=== PATIENT | female | born 1990 | race African-American/Black ===

== ENCOUNTER 2016-05-26 13:05 | Emergency (ER) | payer OTHER ==
[2016-05-26 12:24] LABS: INFLUENZA A SCREEN POSITIVE (NEGATIVE); INFLUENZA B SCREEN NEGATIVE (NEGATIVE)
== END 2016-05-26 13:09 | disposition home or self-care (01) ==
LOC: ER 13:05
PROVIDERS: Nurse Practitioner Acute Care
DX: J10.1 Influenza due to other identified influenza virus with other respiratory manifestations (principal)
CPT/HCPCS: 87070; 87804; 87880; 99284